=== PATIENT | male | born 1980 | race Caucasian/White ===

== ENCOUNTER → 2020-05-31 12:41 | Outpatient (CLI) | payer BC ==
--- NOTE | 2020-06-02 10:01 | ST ---
PATIENT:ROMAN BEAVERS MEDICAL RECORD: [id number] SEX: M LOCATION:[facility] ORDER #: ADMISSION DATE: 05/31/20 AGE OF PATIENT: 40 REFERRING PHYSICIAN: INTERPRETING PHYSICIAN: MARIO MATOS MD DATE OF SERVICE: 05/31/2020 PROCEDURE: Treadmill stress test. FINDINGS: Baseline ECG is normal. Exercised for 10 minutes on Aly protocol. Maximum heart rate of 142 beats per minute. No ECG changes of ischemia. No symptoms of ischemia. No arrhythmias noted. Good exercise tolerance for age. IMPRESSION: Negative treadmill stress test with good exercise tolerance. TRANSINT:[id number] Voice Confirmation ID: [id number] DOCUMENT ID: [id number] MARIO MATOS MD at 1001 CC: [id number] DICTATION DATE: 06/01/20 08 SUPERVISOR [employer]: 06/01/20 08 DEP CLI 05/31/20 [id number] [place] [address]
--- NOTE | 2020-06-02 10:02 | EC ---
PATIENT:ROMAN BEAVERS DATE OF SERVICE: 05/31/20 SEX: M MEDICAL RECORD: [id number] DATE OF : [birth year] [facility] AGE OF PATIENT: 40 ADMISSION DATE: 05/31/20 REFERRING PHYSICIAN: INTERPRETING PHYSICIAN: MARIO MATOS MD ECHOCARDIOGRAM REPORT ECHO CHARGES 4 ECHO COMPLETE Date: 05/31/20 CLINICAL DIAGNOSIS: HEART MURMUR ECHOCARDIOGRAPHIC MEASUREMENTS (adult normal given) AC root (d.<3.7cm) 3.5 cm LV Septum d (<1.2 cm> 1.2 cm Valve Excursion 1.3 cm LV Septum (systole) 1.4 cm Left Atria (s.<4.0cm> 2.9 cm LVPW d(<1.2cm) 1.3 cm RV (d.<2.3cm) 3.9 cm LVPW (sytole) 1.5 cm LV diastole(<5.6CM) 4.6 cm MV E-F(>70mm/sec) cm LV systole 3.7 cm LVOT Diameter 1.9 cm MV exc.(>10mm) 1.5 cm Est.ejection fraction (50-75%) % DOPPLER: LVIT cm/sec A 70.0 cm/sec E 75.0 cm/sec LA cm/sec RVSP 26 mmHg LVOT 101 cm/sec AOP1/2T m/s Asc. Ao 132 cm/sec RVOT cm/sec RA cm/sec PA 126 cm/sec AV Gradient Peak 6.99 mmHg AV Mean 3.80 mmHg AV Area 2.3 cm MV Gradient Peak 2.55 mmHg MV Mean 1.26 mmHg MV Area cm COMMENTS: Urban Redevelopment Specialist: 2 KAILEE VENTURA Template Fitter: 3 Dr. Rivera TAPE# PACS Pericardial Effusion N DATE OF SERVICE: Adequate 2D, color-flow imaging, spectral Doppler, and M-Mode Borderline LVH. LV internal dimension is normal. Wall motion is normal. EF is greater than or equal to 55%. Aortic valve is tricuspid. No evidence of stenosis by Doppler interrogation. Left atrium is normal at 3.9 cm. Mitral valve shows no prolapse. Trivial MR. Right side is grossly normal. Trivial TR. ECHOCARDIOGRAM REPORT [id number] ROMAN BEAVERS TRANSINT:[id number] Voice Confirmation ID: [id number] DOCUMENT ID: [id number] MARIO MATOS MD at 1002 CC: [id number] DICTATION DATE: 06/01/20 1525 SEO MARKETING SPECIALIST: 06/01/20 2303 DEP CLI 05/31/20 [id number] [place] [address]
== END | disposition home or self-care (01) ==
LOC: D.HCCECHO 12:41
PROVIDERS: ATTEND Internal Medicine Interventional Cardiology
DX: R01.1 Cardiac murmur, unspecified (principal); I20.9 Angina pectoris, unspecified